=== PATIENT | female | born 1960 | race Hispanic/Latino ===

== ENCOUNTER 2017-03-21 13:08 | Outpatient (CLI) | payer BC ==
--- NOTE | 2017-03-24 13:05 | Mammography Report ---
LEFT DIGITAL DIAGNOSTIC MAMMOGRAM : 03/21/17 13:08:00 CLINICAL: Recalled to evaluate asymmetry and architectural distortion COMPARISON:02/28/17 and 06/17/11 and 06/11/10 mammograms. FINDINGS: MLO and CC spot compression views demonstrate satisfactory effacement of the previously described asymmetry and architectural distortion. IMPRESSION: Negative Mammogram. BI-RADS CATEGORY: 1 -- Negative RECOMMENDATION: Routine mammographic screening in one year. ACR BI-RADS MAMMOGRAPHIC CODES: 0 = Needs additional imaging evaluation; 1 = Negative; 2 = Benign; 3 = Probably benign; 4 = Suspicious; 5 = Malignant; 6 = Known biopsy-proven malignancy COMMENT: 1. Dense breast tissue, i.e., adenosis, fibrocystic changes, etc., may obscure an underlying neoplasm. 2. Approximately 10% of cancers are not detected with mammography. 3. A negative mammography report should not delay biopsy if a clinically suspicious mass is present.
== END 2017-03-21 13:09 | disposition home or self-care (01) ==
LOC: SPVWC 13:08
PROVIDERS: ATTEND Surgery
DX: R92.2 Inconclusive mammogram (principal)
CPT/HCPCS: G0206-LT